=== PATIENT | female | born 1990 | race Caucasian/White ===

== ENCOUNTER 2017-02-20 07:43 | Emergency (ER) | payer SELFPAY ==
[2017-02-20] MEDS ORDERED: NORMAL SALINE 1000 ML 1,000 ML IV ONE ×2 (08:07→08:23)
[2017-02-20] MEDS ORDERED: ONDANSETRON 4 MG TAB.RAPDIS PO ONE (08:07)
[2017-02-20 08:26] LABS: ABSOLUTE EOSINOPHILS # (AUTO) 0.3 10^3/uL (0.0-0.6); ABSOLUTE LYMPHOCYTES (AUTO) 1.2 10^3/uL (0.5-4.7); ABSOLUTE MONOCYTES (AUTO) 0.5 10^3/uL (0.1-1.4); ABSOLUTE NEUT (AUTO) 2.5 10^3/uL (1.7-8.2); BASOPHILS % (AUTO) 0.7 % (0-2); HEMATOCRIT 43.5 % (36.0-47.0); HEMOGLOBIN 14.6 g/dL (12.0-15.5); HGB HCT DIFFERENCE 0.3; LYMPHOCYTES % (AUTO) 26.8 % (13-45); MEAN CORPUSCULAR HEMOGLOBIN 31.2 pg (27.0-33.4); MEAN CORPUSCULAR HGB CONC 33.5 g/dL (32.0-36.0); MEAN CORPUSCULAR VOLUME 93 fl (80-97); MONOCYTES % (AUTO) 12.1 % (3-13); RED BLOOD COUNT 4.67 10^6/uL (3.72-5.28); RED CELL DISTRIBUTION WIDTH 12.9 % (11.5-14.0); SEGMENTED NEUTROPHILS % (AUTO) 54.4 % (42-78); WHITE BLOOD COUNT 4.5 10^3/uL (4.0-10.5)
[2017-02-20 08:49] LABS: ALANINE AMINOTRANSFERASE 46 U/L (9-52); ALBUMIN 4.4 g/dL (3.5-5.0); ALKALINE PHOSPHATASE 67 U/L (38-126); ANION GAP 10 (5-19); ASPARTATE AMINO TRANSFERASE 26 U/L (14-36); BILIRUBIN,DIRECT 0.4 mg/dL (0.0-0.4); BILIRUBIN,TOTAL 0.9 mg/dL (0.2-1.3); BLOOD UREA NITROGEN 18 mg/dL (7-20); CALCIUM 9.4 mg/dL (8.4-10.2); CARBON DIOXIDE 27 mmol/L (22-30); CHLORIDE 103 mmol/L (98-107); CREATININE RESULT 0.71 mg/dL (0.52-1.25); GLUCOSE 141 mg/dL (75-110); LIPASE 43.5 U/L (23-300); POTASSIUM 3.9 mmol/L (3.6-5.0); TOTAL PROTEIN 7.4 g/dL (6.3-8.2)
[2017-02-20 08:51] LABS: APPEARANCE,URINE CLOUDY; BILIRUBIN,URINE NEGATIVE (NEGATIVE); GLUCOSE, URINE NEGATIVE (NEGATIVE); KETONES,URINE NEGATIVE (NEGATIVE); LEUKOCYTE ESTERASE,URINE NEGATIVE (NEGATIVE); NITRITE,URINE NEGATIVE (NEGATIVE); PROTEIN,URINE 30 mg/dL (NEGATIVE); URINE SPECIFIC GRAVITY 1.034; UROBILINOGEN,URINE NEGATIVE mg/dL (<2.0)
--- NOTE | 2017-02-20 09:51 | ER Document Report ---
ED GI/ - General Chief Complaint: Nausea/Vomiting/Diarrhea Stated Complaint: ABDOMINAL PAIN/VOMITING Time Seen by Provider: 02/20/17 08:06 Mode of Arrival: Ambulatory Information source: Patient Notes: 26-year-old female with nausea vomiting and diarrhea since Monday. She feels dehydrated and vomited at work so they sent her home. No fever or chills. Generalized mild abdominal pain and no focal tenderness at this time. No history of Crohn's, colitis, diverticulitis. Denies . TRAVEL OUTSIDE OF THE [place] IN LAST 30 DAYS: No - Related Data Allergies/Adverse Reactions: No Known Allergies Allergy (Unverified 02/20/17 07:48) Past Medical History - General Information source: Patient - Social History Smoking Status: Current Every Day Smoker Chew tobacco use (# tins/day): No Frequency of alcohol use: Occasional Drug Abuse: None Lives with: Family Family History: Reviewed & Not Pertinent Patient has suicidal ideation: No Patient has homicidal ideation: No - Medical History Medical History: Negative Renal/ Medical History: Denies: Hx Peritoneal Dialysis Surgical Hx: Negative Review of Systems - Review of Systems Constitutional: No symptoms reported EENT: No symptoms reported Cardiovascular: No symptoms reported Respiratory: No symptoms reported Gastrointestinal: See HPI Genitourinary: No symptoms reported Female Genitourinary: No symptoms reported Musculoskeletal: No symptoms reported Skin: No symptoms reported Hematologic/Lymphatic: No symptoms reported Neurological/Psychological: No symptoms reported Physical Exam - Vital signs Vitals: Temp Pulse Resp BP Pulse Ox 97.7 F 97 16 137/77 H 97 02/20/17 07:48 02/20/17 07:48 02/20/17 07:48 02/20/17 07:48 02/20/17 07:48 Interpretation: Normal - General General appearance: Appears well, Alert In distress: None - HEENT Head: Normocephalic, Atraumatic Eyes: Normal Pupils: PERRL Mucous membranes: Dry Neck: Supple. No: Lymphadenopathy - Respiratory Respiratory status: No respiratory distress Chest status: Nontender Breath sounds: Normal Chest palpation: Normal - Cardiovascular Rhythm: Regular Heart sounds: Normal auscultation Murmur: No - Abdominal Inspection: Normal Distension: No distension Bowel sounds: Normal Tenderness: Nontender. No: Tender Organomegaly: No organomegaly - Back Back: Normal, Nontender. No: CVA tenderness - Extremities General upper extremity: Normal inspection, Nontender, Normal color, Normal ROM , Normal temperature General lower extremity: Normal inspection, Nontender, Normal color, Normal ROM , Normal temperature, Normal weight bearing. No: Humberto's sign - Neurological Neuro grossly intact: Yes Cognition: Normal Orientation: AAOx4 Gareth Coma Scale Eye Opening: Spontaneous Gareth Coma Scale Verbal: Oriented Gareth Coma Scale Motor: Obeys Commands [place] Coma Scale Total: 15 Speech: Normal Motor strength normal: LUE, RUE, LLE, RLE Sensory: Normal - Psychological Associated symptoms: Normal affect, Normal mood - Skin Skin Temperature: Warm Skin Moisture: Dry Skin Color: Normal Skin irregularity: negative: Rash Course - Re-evaluation Re-evalutation: 02/20/17 19:01 Late entry: Patient felt much better after 2 L of fluid and she was able to drink fluids and eat crackers. sHe wants to return to work on Monday. - Vital Signs Vital signs: Temp Pulse Resp BP Pulse Ox 97.4 F 82 18 122/82 98 02/20/17 10:55 02/20/17 10:55 02/20/17 10:55 02/20/17 10:55 02/20/17 10:55 - Laboratory Result Diagrams: 02/20/17 07:50 02/20/17 07:50 Laboratory results interpreted by me: 02/20/17 02/20/17 07:50 07:50 Glucose 141 H Urine Protein 30 H Discharge - Discharge Clinical Impression: vomiting and diarrhea Condition: Good Disposition: HOME, SELF-CARE Instructions: Antinausea Medication ([facility]), Intravenous (IV) Fluids ([facility]), Vomiting ([facility]), Diarrhea, Nonspecific ([facility]) Additional Instructions: Continue to hydrate and advance her diet as tolerated Return to the emergency room if worse Please complete the patient satisfaction survey if you get one, and return it.. If you do not receive a survey, then you can go to the [facility] website, [email or web address] and place your comments about your very good care. Thank you very much. It was a pleasure being your medical provider today. Forms: Return to Work
[2017-02-20 11:01] VITALS: BP 122/82
== END 2017-02-20 11:01 | disposition home or self-care (01) ==
LOC: ER 07:43
DX: R11.2 Nausea with vomiting, unspecified (principal); R10.9 Unspecified abdominal pain; R19.7 Diarrhea, unspecified; F17.200 Nicotine dependence, unspecified, uncomplicated
CPT/HCPCS: 99284; 36415; 87086; 83690; 84703; 85025; 80053; 81001; S0119; J7030

== ENCOUNTER 2017-04-12 12:09 | Emergency (ER) | payer SELFPAY ==
--- NOTE | 2017-04-12 13:41 | ER Document Report ---
HPI - HPI Patient complains to provider of: facial swelling Pain Level: 5 Context: 26 yo female c/o left facial swelling since last night. denies new contacts or foods, no dental pain or gum swelling. no facial pain but cheek feels numb. denies tongue swelling. no difficulty swallowing, talking or breathing Associated Symptoms: None Exacerbated by: Denies Relieved by: Denies Similar symptoms previously: No Recently seen / treated by doctor: No - ROS Systems Reviewed and Negative: Yes All other systems reviewed and negative - DERM Skin Color: Normal Past Medical History - General Information source: Patient - Social History Smoking Status: Never Smoker Frequency of alcohol use: None Drug Abuse: None Lives with: Family Family History: Reviewed & Not Pertinent Patient has suicidal ideation: No Patient has homicidal ideation: No - Medical History Medical History: Negative Renal/ Medical History: Denies: Hx Peritoneal Dialysis Vertical Provider Document - CONSTITUTIONAL Agree With Documented VS: Yes Exam Limitations: No Limitations - INFECTION CONTROL TRAVEL OUTSIDE OF THE [place] IN LAST 30 DAYS: No - HEENT HEENT: Atraumatic, PERRLA Notes: + soft tissue swelling to left malar face. no angioedema, no gingival edema or pain - NECK Neck: Normal Inspection, Supple - RESPIRATORY O2 Sat by Pulse Oximetry: 97 - CARDIOVASCULAR Cardiovascular: Regular Rate, Regular Rhythm - MUSCULOSKELETAL/EXTREMETIES Musculoskeletal/Extremeties: MAEW, FROM, Non-Tender - NEURO Level of Consciousness: Awake, Alert, Appropriate - DERM Integumentary: Warm, Dry, No Rash Course - Re-evaluation Re-evalutation: 04/12/17 13:50 swelling looks more consistant with allergic reaction than infectious cause. will treat with steroid, antihistamines. pt instructed to return to ER for any worsening. agreeable with plan and stable for discharge - Vital Signs Vital signs: Temp Pulse Resp BP Pulse Ox 98.5 F 73 14 129/68 H 97 04/12/17 12:20 04/12/17 12:20 04/12/17 12:20 04/12/17 12:20 04/12/17 12:20 Discharge - Discharge Clinical Impression: Facial swelling Condition: Stable Disposition: HOME, SELF-CARE Instructions: Acute Allergic Reaction ([facility]), Steroid Medication, OTC Antihistamines ([facility]), Use of Diphenhydramine Additional Instructions: I am treating your symptoms for an allergic reaction please take medications as prescribed take OTC Benadryl 50mg every 6h for 24h after symptoms resolve take OTC Pepcid twice a day for 24h after symptoms resolve return to ER for any worsening Prescriptions: Prednisone [Deltasone 20 mg Tablet] 3 tab PO DAILY 5 Days Forms: Return to Work
[2017-04-12] MEDS ORDERED: PREDNISONE 20 MG TABLET PO ONE (13:44)
[2017-04-12] MEDS ORDERED: DIPHENHYDRAMINE HCL 50 MG CAPSULE PO ONE (13:44)
[2017-04-12] MEDS ORDERED: FAMOTIDINE 20 MG TABLET PO ONE (13:44)
[2017-04-12 14:15] VITALS: BP 119/68
== END 2017-04-12 14:13 | disposition home or self-care (01) ==
LOC: ER 12:09
DX: R22.0 Localized swelling, mass and lump, head (principal)
CPT/HCPCS: 99283; J7512

== ENCOUNTER 2018-02-11 16:50 | Inpatient (IN) | payer SELFPAY ==
[2018-02-11] MEDS ORDERED: AMPICILLIN SOD/SULBACTAM 3 GM VIAL IV ONE (17:19)
[2018-02-11] MEDS ORDERED: KETOROLAC TROMETHAMINE INJ/PF 30 MG/1 ML SDV IV ONE (17:19)
--- NOTE | 2018-02-11 17:20 | ER Document Report ---
ED Medical Screen (RME) - General Chief Complaint: Cat Bite Stated Complaint: CAT BITE/LEFT ARM PAIN, SWELLING Time Seen by Provider: 02/11/18 17:15 Notes: 27-year-old female patient was holding her friends Yesterday afternoon when her dog saw the cat and tried to get the cat. The cat freaked out and bit the patient on the left dorsal distal forearm several times. Today the entire area is red and swollen and quite painful. I have greeted and performed a rapid initial assessment of this patient. A comprehensive ED assessment and evaluation of the patient, analysis of test results and completion of the medical decision making process will be conducted by additional ED providers. TRAVEL OUTSIDE OF THE [place] IN LAST 30 DAYS: No - Related Data Allergies/Adverse Reactions: No Known Allergies Allergy (Verified 02/11/18 16:55) Past Medical History Renal/ Medical History: Denies: Hx Peritoneal Dialysis Physical Exam - Vital signs Vitals: Temp Pulse Resp BP Pulse Ox 98.2 F 94 20 122/67 100 02/11/18 17:01 02/11/18 17:01 02/11/18 17:01 02/11/18 17:01 02/11/18 17:01 Course - Vital Signs Vital signs: Temp Pulse Resp BP Pulse Ox 98.2 F 94 20 122/67 100 02/11/18 17:01 02/11/18 17:01 02/11/18 17:01 02/11/18 17:01 02/11/18 17:01
[2018-02-11 18:13] LABS: ABSOLUTE BASOPHILS # (AUTO) 0.1 10^3/uL (0.0-0.2); ABSOLUTE EOSINOPHILS # (AUTO) 0.2 10^3/uL (0.0-0.6); ABSOLUTE LYMPHOCYTES (AUTO) 2.3 10^3/uL (0.5-4.7); ABSOLUTE MONOCYTES (AUTO) 0.8 10^3/uL (0.1-1.4); ABSOLUTE NEUT (AUTO) 10.2 10^3/uL (1.7-8.2); BASOPHILS % (AUTO) 0.4 % (0-2); EOSINOPHILS % (AUTO) 1.2 % (0-6); HEMATOCRIT 42.3 % (36.0-47.0); HEMOGLOBIN 14.1 g/dL (12.0-15.5); LYMPHOCYTES % (AUTO) 16.8 % (13-45); MEAN CORPUSCULAR HEMOGLOBIN 30.8 pg (27.0-33.4); MEAN CORPUSCULAR HGB CONC 33.4 g/dL (32.0-36.0); MEAN CORPUSCULAR VOLUME 92 fl (80-97); PLATELET COUNT 217 10^3/uL (150-450); RED BLOOD COUNT 4.59 10^6/uL (3.72-5.28); RED CELL DISTRIBUTION WIDTH 13.1 % (11.5-14.0); SEGMENTED NEUTROPHILS % (AUTO) 75.6 % (42-78); TOTAL CELLS COUNTED % (AUTO) 100 %; WHITE BLOOD COUNT 13.5 10^3/uL (4.0-10.5)
[2018-02-11 18:24] LABS: ALANINE AMINOTRANSFERASE 38 U/L (9-52); ALBUMIN 4.6 g/dL (3.5-5.0); ALKALINE PHOSPHATASE 66 U/L (38-126); ANION GAP 15 (5-19); ASPARTATE AMINO TRANSFERASE 21 U/L (14-36); BILIRUBIN,DIRECT 0.3 mg/dL (0.0-0.4); BILIRUBIN,TOTAL 0.7 mg/dL (0.2-1.3); BLOOD UREA NITROGEN 11 mg/dL (7-20); CALCIUM 9.8 mg/dL (8.4-10.2); CARBON DIOXIDE 27 mmol/L (22-30); CHLORIDE 104 mmol/L (98-107); GLUCOSE 115 mg/dL (75-110); POTASSIUM 3.4 mmol/L (3.6-5.0); SODIUM 146.4 mmol/L (137-145); TOTAL PROTEIN 7.8 g/dL (6.3-8.2)
[2018-02-11] MEDS ORDERED: ONDANSETRON HCL INJ/PF 4 MG/2 ML SDV IV ONE (18:34)
[2018-02-11] MEDS ORDERED: DIPH/PERTUSS(ACELL)/TETANUS VAC/PF 0.5 ML SYR (>=10YO) IM ONE (18:34)
[2018-02-11] MEDS ORDERED: MORPHINE SULFATE 10 MG/ML INJ IV PRN (18:34)
--- NOTE | 2018-02-11 18:36 | ER Document Report ---
ED General - General Chief Complaint: Cat Bite Stated Complaint: CAT BITE/LEFT ARM PAIN, SWELLING Time Seen by Provider: 02/11/18 17:15 Notes: Patient is a 27-year-old female without past medical history who presents with 20-24 hours of progressively worsening erythema, pain and swelling of her left dorsal forearm. The patient reports that she was bitten 3-4 times by a friend' s cat yesterday afternoon when the cat saw her dog. She states that she has since had a progressively worsening throbbing, aching, severe pain to the affected area and that she has noted a rapidly spreading erythema from the areas of the bites down to the dorsum of her hand and spreading towards her elbow. She states any attempt at moving the arm worsens the pain. She has tried [id number] pain medications with minimal to no relief of the pain. she has not had any associated fever although does report cold chills. She has no history of similar symptoms in the past. She has not seen her primary care doctor regarding today's concerns. TRAVEL OUTSIDE OF THE [place] IN LAST 30 DAYS: No - Related Data Allergies/Adverse Reactions: No Known Allergies Allergy (Verified 02/11/18 16:55) Past Medical History - General Information source: Patient - Social History Smoking Status: Current Every Day Smoker Frequency of alcohol use: Rare Drug Abuse: None Lives with: Family Family History: Reviewed & Not Pertinent Patient has suicidal ideation: No Patient has homicidal ideation: No Renal/ Medical History: Denies: Hx Peritoneal Dialysis Review of Systems - Review of Systems Notes: Constitutional: Negative for fever. HENT: Negative for sore throat. Eyes: Negative for visual changes. Cardiovascular: Negative for chest pain. Respiratory: Negative for shortness of breath. Gastrointestinal: Negative for abdominal pain, vomiting or diarrhea. Genitourinary: Negative for dysuria. Musculoskeletal: Positive for left forearm pain Skin: Positive for rash. Neurological: Negative for headaches, weakness or numbness. 10 point ROS negative except as marked above and in HPI. Physical Exam - Vital signs Vitals: Temp Pulse Resp BP Pulse Ox 98.2 F 94 20 122/67 100 02/11/18 17:01 02/11/18 17:01 02/11/18 17:01 02/11/18 17:01 02/11/18 17:01 Notes: PHYSICAL EXAMINATION: GENERAL: Appears moderately uncomfortable but in no acute distress HEAD: Atraumatic, normocephalic. EYES: Pupils equal round and reactive to light, extraocular movements intact, sclera anicteric, conjunctiva are normal. ENT: nares patent, oropharynx clear without exudates. Moist mucous membranes. NECK: Normal range of motion, supple without lymphadenopathy LUNGS: Breath sounds clear to auscultation bilaterally and equal. No wheezes rales or rhonchi. HEART: Regular rate and rhythm without murmurs ABDOMEN: Soft, nontender, normoactive bowel sounds. No guarding, no rebound. No masses appreciated. EXTREMITIES: Normal range of motion, no pitting or edema. No cyanosis. Full flexion extension at the DIP, MCP and PIP of all digits of the left hand although obvious discomfort with this range of motion. No pain along palpation of the flexor sheath. NEUROLOGICAL: No focal neurological deficits. Moves all extremities spontaneously and on command. PSYCH: Normal mood, normal affect. SKIN: Warm, Dry, normal turgor, there are 4-5 puncture wounds that are scabbed over on the left midforearm with extensive surrounding induration and erythema without any areas of fluctuance. The erythema extends over the entirety the dorsum of the hand approaches approximately two thirds of the dorsal area of the forearm. Course - Re-evaluation Re-evalutation: 02/11/18 18:34 Patient presents after a cat bit her left dorsal forearm 3-4 times yesterday now with an extensive cellulitis to approximately two thirds of the surface area of the dorsal aspect of the left forearm also extending onto the dorsum of the hand. No evidence of flexor tenosynovitis on examination although the degree of cellulitis progression in less than 24 hours with associated extensive edema is extremely worrisome for rapidly progressing infection. Patient also has a marked amount of pain with this infection. Her tetanus has been updated. The cat is a known cat and is up-to-date on all immunizations including rabies vaccination. Given the rapidity with which the cellulitis has spread and the source of the infection, I have discussed the patient hospitalization and she has agreed. A dose of 3 mg of IV Unasyn has been administered. Pain control with morphine and Toradol as needed. Will discuss with the hospitalist for admission. - Vital Signs Vital signs: Temp Pulse Resp BP Pulse Ox 98.2 F 94 20 122/67 100 02/11/18 17:01 02/11/18 17:01 02/11/18 17:01 02/11/18 17:01 02/11/18 17:01 - Laboratory Result Diagrams: 02/11/18 17:48 02/11/18 17:48 Laboratory results interpreted by me: 02/11/18 02/11/18 17:48 17:48 WBC 13.5 H Absolute Neutrophils 10.2 H Sodium 146.4 H Potassium 3.4 L Glucose 115 H Discharge - Discharge Clinical Impression: Cellulitis of forearm, left Cat bite of left forearm with infection Qualifiers: Encounter type: initial encounter Qualified Code(s): S51.852A - Open bite of left forearm, initial encounter; L08.9 - Local infection of the skin and subcutaneous tissue, unspecified; L08.9 - Local infection of the skin and subcutaneous tissue, unspecified; W55.01XA - Bitten by cat, initial encounter; W55.01XA - Bitten by cat, initial encounter Condition: Fair Disposition: ADMITTED INPATIENT Admitting Provider: Hospitalist Unit Admitted: Medical Floor
[2018-02-11] MEDS ORDERED: PROMETHAZINE HCL 25 MG TABLET PO PRN (19:57)
--- NOTE | 2018-02-11 20:58 | PDOC H&P ---
History of Present Illness Admission Date/PCP: 02/11/18 19:59 History of Present Illness: ASIF TIRADO is a 27 year old female patient who does not have significant medical history presented with 1 day history of swelling pain and tenderness of her left following bitten by a cat. Patient denies any other constitutional symptoms. No nausea, vomiting, abdominal pain, diarrhea or urinary complaints. No headache, dizziness or blurry vision. Her initial blood work shows mild leukocytosis. Patient is given prophylaxis for tetanus at the ER. Past Medical History Medical History: None Past Surgical History Past Surgical History: Reports: None Social History Lives with: Family Smoking Status: Current Every Day Smoker - Advance Directive Resuscitation Status: Full Code Family History Family History: Reviewed & Not Pertinent Parental Family History Reviewed: Yes Children Family History Reviewed: Yes Sibling(s) Family History Reviewed.: Yes Medication/Allergy Home Medications: Prednisone [Deltasone 20 mg Tablet] 3 tab PO DAILY 5 Days tablet 04/12/17 Allergies/Adverse Reactions: No Known Allergies Allergy (Verified 02/11/18 16:55) Review of Systems Constitutional: PRESENT: as per HPI Eyes: PRESENT: as per HPI Ears: PRESENT: as per HPI Cardiovascular: PRESENT: as per HPI Gastrointestinal: PRESENT: as per HPI Neurological: PRESENT: as per HPI Physical Exam Vital Signs: Temp Pulse Resp BP Pulse Ox 98.5 F 78 20 123/68 100 02/11/18 20:22 02/11/18 20:22 02/11/18 17:01 02/11/18 20:22 02/11/18 20:22 General appearance: PRESENT: no acute distress Head exam: PRESENT: atraumatic, normocephalic Respiratory exam: PRESENT: clear to auscultation jeremy. ABSENT: rales, rhonchi, wheezes Cardiovascular exam: PRESENT: RRR. ABSENT: diastolic murmur, rubs, systolic murmur GI/Abdominal exam: PRESENT: normal bowel sounds, soft. ABSENT: distended, guarding, mass, organolmegaly, rebound, tenderness Extremities exam: PRESENT: other - The pertinent finding is erythema, swelling, tenderness and bite sibley on her left forearm. Assessment & Plan - Diagnosis (1) Cat bite of left forearm with infection Qualifiers: Encounter type: initial encounter Qualified Code(s): S51.852A - Open bite of left forearm, initial encounter; L08.9 - Local infection of the skin and subcutaneous tissue, unspecified; L08.9 - Local infection of the skin and subcutaneous tissue, unspecified; W55.01XA - Bitten by cat, initial encounter; W55.01XA - Bitten by cat, initial encounter Is this a current diagnosis for this admission?: Yes Plan: Patient given tetanus antitoxin (2) Cellulitis of forearm, left Is this a current diagnosis for this admission?: Yes Plan: Patient has been started on Unasyn. - Time Time Spent: 30 to 50 Minutes - Inpatient Certification Medical Necessity: Need for IV Antibiotics
[2018-02-11] MEDS: FENTANYL CITRATE INJ/PF 100 MCG/2 ML AMPUL IV PRN (22:07)
[2018-02-11] MEDS ORDERED: AMPICILLIN SOD/SULBACTAM 3 GM VIAL ONE (23:49)
[2018-02-12] MEDS: AMPICILLIN SODIUM/SULBACTAM NA 3 GM in NORMAL SALINE 100 ML IV SCH ×5 (00:36→23:13)
[2018-02-12] MEDS: ACETAMINOPHEN 325 MG TABLET PO PRN ×2 (03:56→09:54)
[2018-02-12] MEDS ORDERED: AMPICILLIN SOD/SULBACTAM 3 GM VIAL ONE (04:12)
[2018-02-12] MEDS: LANSOPRAZOLE 30 MG TAB.RAP.DR PO SCH (06:28)
[2018-02-12] MEDS: FENTANYL CITRATE INJ/PF 100 MCG/2 ML AMPUL IV PRN (06:29)
[2018-02-12 06:38] LABS: ABSOLUTE BASOPHILS # (AUTO) 0.1 10^3/uL (0.0-0.2); ABSOLUTE EOSINOPHILS # (AUTO) 0.3 10^3/uL (0.0-0.6); ABSOLUTE LYMPHOCYTES (AUTO) 2.3 10^3/uL (0.5-4.7); ABSOLUTE MONOCYTES (AUTO) 0.9 10^3/uL (0.1-1.4); BASOPHILS % (AUTO) 0.8 % (0-2); EOSINOPHILS % (AUTO) 2.8 % (0-6); HEMATOCRIT 38.3 % (36.0-47.0); HEMOGLOBIN 12.9 g/dL (12.0-15.5); LYMPHOCYTES % (AUTO) 24.4 % (13-45); MEAN CORPUSCULAR HEMOGLOBIN 30.9 pg (27.0-33.4); MEAN CORPUSCULAR HGB CONC 33.7 g/dL (32.0-36.0); MEAN CORPUSCULAR VOLUME 91 fl (80-97); MONOCYTES % (AUTO) 9.1 % (3-13); PLATELET COUNT 188 10^3/uL (150-450); RED BLOOD COUNT 4.19 10^6/uL (3.72-5.28); SEGMENTED NEUTROPHILS % (AUTO) 62.9 % (42-78); TOTAL CELLS COUNTED % (AUTO) 100 %; WHITE BLOOD COUNT 9.6 10^3/uL (4.0-10.5)
[2018-02-12 07:05] LABS: ANION GAP 9 (5-19); BLOOD UREA NITROGEN 14 mg/dL (7-20); CARBON DIOXIDE 25 mmol/L (22-30); CHLORIDE 109 mmol/L (98-107); GLUCOSE 126 mg/dL (75-110); POTASSIUM 3.6 mmol/L (3.6-5.0); SODIUM 142.6 mmol/L (137-145)
[2018-02-12] MEDS: ENOXAPARIN SODIUM INJ 40 MG/0.4 ML DISP.SYRIN SUBCUT SCH (09:48)
--- NOTE | 2018-02-12 11:55 | PDOC PROGRESS REPORT ---
Subjective Progress Note for:: 02/12/18 Subjective:: Patient admitted with cellulitis of the left upper extremity after being bitten by a cat. She was started on Unasyn. Patient tells me that he does not really look much better today. She denies any nausea vomiting other pertinent symptoms. Reason For Visit: CELLULITIS, CAT SCRATCH Physical Exam Vital Signs: Temp Pulse Resp BP Pulse Ox 97.9 F 67 20 97/52 L 100 02/12/18 07:30 02/12/18 07:30 02/12/18 07:30 02/12/18 07:30 02/12/18 07:30 Intake & Output 02/11/18 02/12/18 02/13/18 06:59 06:59 06:59 Intake Total 520 Output Total 100 Balance 420 Weight 79.8 kg General appearance: PRESENT: no acute distress Head exam: PRESENT: atraumatic Eye exam: PRESENT: conjunctiva pink, EOMI, PERRLA. ABSENT: scleral icterus Ear exam: PRESENT: normal external ear exam Neck exam: ABSENT: carotid bruit, JVD, lymphadenopathy, thyromegaly Respiratory exam: PRESENT: clear to auscultation jeremy. ABSENT: rales, rhonchi, wheezes Cardiovascular exam: PRESENT: RRR. ABSENT: diastolic murmur, rubs, systolic murmur Pulses: PRESENT: normal dorsalis pedis pul GI/Abdominal exam: PRESENT: normal bowel sounds, soft. ABSENT: distended, guarding, mass, organolmegaly, rebound, tenderness Rectal exam: PRESENT: deferred Extremities exam: PRESENT: full ROM - slightly diminished L wrist, joint swelling - L wrist, tenderness Neurological exam: PRESENT: alert, awake, oriented to person, oriented to place , oriented to time, oriented to situation, CN II-XII grossly intact. ABSENT: motor sensory deficit Results Laboratory Results: 02/12/18 06:10 02/12/18 06:10 02/12/18 02/12/18 06:10 06:10 WBC 9.6 RBC 4.19 Hgb 12.9 Hct 38.3 MCV 91 MCH 30.9 MCHC 33.7 RDW 13.0 Plt Count 188 Seg Neutrophils % 62.9 Lymphocytes % 24.4 Monocytes % 9.1 Eosinophils % 2.8 Basophils % 0.8 Absolute Neutrophils 6.0 Absolute Lymphocytes 2.3 Absolute Monocytes 0.9 Absolute Eosinophils 0.3 Absolute Basophils 0.1 Sodium 142.6 Potassium 3.6 Chloride 109 H Carbon Dioxide 25 Anion Gap 9 BUN 14 Creatinine 0.63 Est GFR ( Amer) > 60 Est GFR (Non-Af Amer) > 60 Glucose 126 H Calcium 9.0 Assessment & Plan - Diagnosis (1) Cat bite of left forearm with infection Qualifiers: Encounter type: initial encounter Qualified Code(s): S51.852A - Open bite of left forearm, initial encounter; L08.9 - Local infection of the skin and subcutaneous tissue, unspecified; L08.9 - Local infection of the skin and subcutaneous tissue, unspecified; W55.01XA - Bitten by cat, initial encounter; W55.01XA - Bitten by cat, initial encounter Is this a current diagnosis for this admission?: Yes Plan: Will consult Orthopedics for further evaluation (2) Cellulitis of forearm, left Is this a current diagnosis for this admission?: Yes - Time Time Spent with patient: 15-24 minutes Medications reviewed and adjusted accordingly: Yes Anticipated discharge: Home Within: within 72 hours - Inpatient Certification Based on my medical assessment, after consideration of the patient's comorbidities, presenting symptoms, or acuity I expect that the services needed warrant INPATIENT care.: Yes Medical Necessity: Need for IV Antibiotics
[2018-02-12] MEDS: IBUPROFEN 800 MG TABLET PO PRN ×2 (13:02→21:27)
--- NOTE | 2018-02-12 15:54 | PDOC CONSULTATION ---
Consultation Consult reason:: left forearm cat bite History of Present Illness Admission Date/PCP: 02/11/18 19:59 History of Present Illness: ASIF TIRADO is a 27 year old female Patient sustained By injury left forearm 3 days ago. She is uncertain of the tetanus status. Patient was seen in the emergency department, admitted to the medical service for intravenous antibiotics and arm elevation. Patient states initially the arm is very tight she could not move her wrist but now has improved range of motion of the hand. She remains on intravenous antibiotics; she is [id number] Past Medical History Past Medical History: Chronic smoker Past Surgical History Past Surgical History: Reports: None Social History Lives with: Family Smoking Status: Current Every Day Smoker Frequency of Alcohol Use: Occasional Hx Recreational Drug Use: No Drugs: None Hx Prescription Drug Abuse: No - Advance Directive Resuscitation Status: Full Code Family History Family History: Reviewed & Not Pertinent Parental Family History Reviewed: Yes Children Family History Reviewed: Yes Sibling(s) Family History Reviewed.: Yes Medication/Allergy Home Medications: No Home Medications 02/12/18 Allergies/Adverse Reactions: No Known Allergies Allergy (Verified 02/11/18 16:55) Review of Systems Eyes: ABSENT: visual disturbances Ears: ABSENT: hearing changes Cardiovascular: ABSENT: chest pain, dyspnea on exertion, edema, orthropnea, palpitations Respiratory: ABSENT: cough, hemoptysis Gastrointestinal: ABSENT: abdominal pain, constipation, diarrhea, hematemesis, hematochezia, nausea, vomiting Musculoskeletal: PRESENT: as per HPI Physical Exam Vital Signs: Temp Pulse Resp BP Pulse Ox 97.9 F 68 20 103/52 L 98 02/12/18 11:10 02/12/18 11:10 02/12/18 11:10 02/12/18 11:10 02/12/18 11:10 Intake & Output 02/11/18 02/12/18 02/13/18 06:59 06:59 06:59 Intake Total 520 Output Total 100 Balance 420 Weight 79.8 kg General appearance: PRESENT: no acute distress Head exam: PRESENT: normocephalic Mouth exam: PRESENT: dry mucosa Neck exam: PRESENT: full ROM Respiratory exam: PRESENT: clear to auscultation jeremy Cardiovascular exam: PRESENT: RRR Pulses: PRESENT: normal radial pulses, normal femoral pulses GI/Abdominal exam: PRESENT: normal bowel sounds Rectal exam: PRESENT: deferred Extremities exam: PRESENT: other - Left upper extremity examined. For punctate , healing her wounds to the left forearm dorsal surface, no foul smell drainage ; minimal tenderness to the distal left forearm, extensor retinaculum and the left hand. Range of motion of the fingers and hand well-preserved. Patient has some pain on wrist extension. Skin exam: PRESENT: other - No cervical adenopathy Results Laboratory Results: 02/12/18 06:10 02/12/18 06:10 02/12/18 02/12/18 06:10 06:10 WBC 9.6 RBC 4.19 Hgb 12.9 Hct 38.3 MCV 91 MCH 30.9 MCHC 33.7 RDW 13.0 Plt Count 188 Seg Neutrophils % 62.9 Lymphocytes % 24.4 Monocytes % 9.1 Eosinophils % 2.8 Basophils % 0.8 Absolute Neutrophils 6.0 Absolute Lymphocytes 2.3 Absolute Monocytes 0.9 Absolute Eosinophils 0.3 Absolute Basophils 0.1 Sodium 142.6 Potassium 3.6 Chloride 109 H Carbon Dioxide 25 Anion Gap 9 BUN 14 Creatinine 0.63 Est GFR ( Amer) > 60 Est GFR (Non-Af Amer) > 60 Glucose 126 H Calcium 9.0 Assessment & Plan - Diagnosis (1) Cellulitis of forearm, left Is this a current diagnosis for this admission?: Yes Plan: Self-reported cat bite left forearm and right hand dominant female with primarily local contamination; clinically significant for infection. Clinically improved, range of motion the left hand and forearm nearly intact Indications: 1. Aggressive physical therapy; this was discussed with patient 2. Elevation left forearm while at rest 3. Can safely switch to p.o. antibiotics - Time Time Spent: 30 to 50 Minutes Smoking Cessation Education: 3 to 10 minutes Anticipated discharge: Home - Inpatient Certification Based on my medical assessment, after consideration of the patient's comorbidities, presenting symptoms, or acuity I expect that the services needed warrant INPATIENT care.: Yes I certify that my determination is in accordance with my understanding of Medicare's requirements for reasonable and necessary INPATIENT services [42 CFR 412.3e].: Yes Medical Necessity: Need for Pain Control
[2018-02-13 05:48] LABS: ABSOLUTE BASOPHILS # (AUTO) 0.1 10^3/uL (0.0-0.2); ABSOLUTE EOSINOPHILS # (AUTO) 0.4 10^3/uL (0.0-0.6); ABSOLUTE LYMPHOCYTES (AUTO) 2.2 10^3/uL (0.5-4.7); ABSOLUTE MONOCYTES (AUTO) 0.6 10^3/uL (0.1-1.4); ABSOLUTE NEUT (AUTO) 3.8 10^3/uL (1.7-8.2); BASOPHILS % (AUTO) 1.2 % (0-2); EOSINOPHILS % (AUTO) 5.2 % (0-6); HEMATOCRIT 39.9 % (36.0-47.0); HEMOGLOBIN 13.4 g/dL (12.0-15.5); LYMPHOCYTES % (AUTO) 31.4 % (13-45); MEAN CORPUSCULAR HEMOGLOBIN 30.6 pg (27.0-33.4); MEAN CORPUSCULAR HGB CONC 33.7 g/dL (32.0-36.0); MEAN CORPUSCULAR VOLUME 91 fl (80-97); MONOCYTES % (AUTO) 8.7 % (3-13); PLATELET COUNT 182 10^3/uL (150-450); RED BLOOD COUNT 4.38 10^6/uL (3.72-5.28); RED CELL DISTRIBUTION WIDTH 13.1 % (11.5-14.0); SEGMENTED NEUTROPHILS % (AUTO) 53.5 % (42-78); TOTAL CELLS COUNTED % (AUTO) 100 %; WHITE BLOOD COUNT 7.1 10^3/uL (4.0-10.5)
[2018-02-13 06:08] LABS: ANION GAP 10 (5-19); BLOOD UREA NITROGEN 8 mg/dL (7-20); CALCIUM 9.5 mg/dL (8.4-10.2); CARBON DIOXIDE 25 mmol/L (22-30); CHLORIDE 109 mmol/L (98-107); GLUCOSE 133 mg/dL (75-110); SODIUM 144.4 mmol/L (137-145)
[2018-02-13] MEDS: LANSOPRAZOLE 30 MG TAB.RAP.DR PO SCH (06:12)
[2018-02-13] MEDS: AMPICILLIN SODIUM/SULBACTAM NA 3 GM in NORMAL SALINE 100 ML IV SCH ×2 (06:13→11:14)
[2018-02-13 07:03] LABS: POTASSIUM 4.7 mmol/L (3.6-5.0)
[2018-02-13] MEDS: ENOXAPARIN SODIUM INJ 40 MG/0.4 ML DISP.SYRIN SUBCUT SCH (09:11)
--- NOTE | 2018-02-13 10:38 | PDOC DISCHARGE SUMMARY ---
General - Admit/Disc Date/PCP Admission Date/Primary Care Provider: 02/11/18 19:59 Discharge Date: 02/13/18 - Discharge Diagnosis (1) Cat bite of left forearm with infection Is this a current diagnosis for this admission?: Yes (2) Cellulitis of forearm, left Is this a current diagnosis for this admission?: Yes - Additional Information Resuscitation Status: Full Code Discharge Diet: Regular Discharge Activity: Activity As Tolerated, Other - Elevate Lrft hand Prescriptions: Ibuprofen [Motrin 800 mg Tablet] 800 mg PO Q8HP PRN #30 tablet PRN Reason: Amox Tr/Potassium Clavulanate [Augmentin 875-125 mg Tablet] 1 tab PO BID #14 tablet Home Medications: Amox Tr/Potassium Clavulanate [Augmentin 875-125 mg Tablet] 1 tab PO BID #14 tablet 02/13/18 Ibuprofen [Motrin 800 mg Tablet] 800 mg PO Q8HP PRN #30 tablet 02/13/18 History of Present Illness History of Present Illness: ASIF TIRADO is a 27 year old female admitted with swelling and pain LUE following a cat bite Physical Exam Vital Signs: Temp Pulse Resp BP Pulse Ox 97.7 F 59 L 16 92/47 L 100 02/13/18 03:47 02/13/18 03:47 02/13/18 03:47 02/13/18 03:47 02/13/18 03:47 Intake & Output 02/12/18 02/13/18 02/14/18 06:59 06:59 06:59 Intake Total 520 5140 Output Total 100 Balance 420 5140 Weight 79.8 kg 83.6 kg General appearance: PRESENT: no acute distress, well-developed, well-nourished Eye exam: PRESENT: conjunctiva pink, EOMI, PERRLA. ABSENT: scleral icterus Ear exam: PRESENT: normal external ear exam GI/Abdominal exam: PRESENT: normal bowel sounds, soft. ABSENT: distended, guarding, mass, organolmegaly, rebound, tenderness Rectal exam: PRESENT: deferred Extremities exam: PRESENT: full ROM, joint swelling - L wrist, other - L UE swelling but improved Neurological exam: PRESENT: alert, awake, oriented to person, oriented to place , oriented to time, oriented to situation, CN II-XII grossly intact. ABSENT: motor sensory deficit Results Laboratory Results: 02/13/18 05:23 02/13/18 05:23 02/13/18 02/13/18 05:23 05:23 WBC 7.1 RBC 4.38 Hgb 13.4 Hct 39.9 MCV 91 MCH 30.6 MCHC 33.7 RDW 13.1 Plt Count 182 Seg Neutrophils % 53.5 Lymphocytes % 31.4 Monocytes % 8.7 Eosinophils % 5.2 Basophils % 1.2 Absolute Neutrophils 3.8 Absolute Lymphocytes 2.2 Absolute Monocytes 0.6 Absolute Eosinophils 0.4 Absolute Basophils 0.1 Sodium 144.4 Potassium 4.7 D Chloride 109 H Carbon Dioxide 25 Anion Gap 10 BUN 8 Creatinine 0.62 Est GFR ( Amer) > 60 Est GFR (Non-Af Amer) > 60 Glucose 133 H Calcium 9.5 Qualifiers - * PATIENT BEING DISCHARGED WITH ANY OF THE FOLLOWING DIAGNOSIS: No Plan Time Spent: Less than 30 Minutes
[2018-02-13 11:00] VITALS: BP 98/46
--- NOTE | 2018-02-13 16:32 | PDOC DISCHARGE SUMMARY ---
General - Admit/Disc Date/PCP Admission Date/Primary Care Provider: 02/11/18 19:59 Discharge Date: 02/13/18 - Discharge Diagnosis (1) Cat bite of left forearm with infection Is this a current diagnosis for this admission?: Yes (2) Cellulitis of forearm, left Is this a current diagnosis for this admission?: Yes - Additional Information Resuscitation Status: Full Code Discharge Diet: Regular Discharge Activity: Activity As Tolerated, Other Prescriptions: Ibuprofen [Motrin 800 mg Tablet] 800 mg PO Q8HP PRN #30 tablet PRN Reason: Amox Tr/Potassium Clavulanate [Augmentin 875-125 mg Tablet] 1 tab PO BID #14 tablet Home Medications: Amox Tr/Potassium Clavulanate [Augmentin 875-125 mg Tablet] 1 tab PO BID #14 tablet 02/13/18 Ibuprofen [Motrin 800 mg Tablet] 800 mg PO Q8HP PRN #30 tablet 02/13/18 History of Present Illness History of Present Illness: ASIF TIRADO is a 27 year old female who does not have significant medical history presented with 1 day history of swelling pain and tenderness of her left following bitten by a cat. Patient denies any other constitutional symptoms. No nausea, vomiting, abdominal pain, diarrhea or urinary complaints. No headache, dizziness or blurry vision. Her initial blood work shows mild leukocytosis. Patient is given prophylaxis for tetanus at the ER. Hospital Course Hospital Course: 27-year-old female was admitted with a cat bite of left upper extremity. She was found to have cellulitis and was treated with intravenous Unasyn in hospital. She was subsequently seen by general surgery with no was no need for any intervention. Patient symptoms improved with improvement of the swelling and with hemodynamic stability. With no further interventions been planned patient is been discharged home for outpatient follow-up. Physical Exam Vital Signs: Temp Pulse Resp BP Pulse Ox 97.7 F 59 L 16 98/46 L 100 02/13/18 10:57 02/13/18 10:57 02/13/18 10:57 02/13/18 10:57 02/13/18 10:57 Intake & Output 02/12/18 02/13/18 02/14/18 06:59 06:59 06:59 Intake Total 520 5140 458 Output Total 100 Balance 420 5140 458 Weight 79.8 kg 83.6 kg General appearance: PRESENT: no acute distress Head exam: PRESENT: atraumatic Ear exam: PRESENT: normal external ear exam Neck exam: ABSENT: carotid bruit, JVD, lymphadenopathy, thyromegaly Respiratory exam: PRESENT: clear to auscultation jeremy. ABSENT: rales, rhonchi, wheezes Cardiovascular exam: PRESENT: RRR. ABSENT: diastolic murmur, rubs, systolic murmur GI/Abdominal exam: PRESENT: normal bowel sounds, soft. ABSENT: distended, guarding, mass, organolmegaly, rebound, tenderness Musculoskeletal exam: PRESENT: ambulatory, full ROM, other - L upper extremity just distal to wrist with swelling and cat bite sibley but no drainage or erythema Neurological exam: PRESENT: alert, awake, oriented to person, oriented to place , oriented to time, oriented to situation, CN II-XII grossly intact. ABSENT: motor sensory deficit Psychiatric exam: PRESENT: appropriate affect, normal mood. ABSENT: homicidal ideation, suicidal ideation Results Laboratory Results: 02/13/18 05:23 02/13/18 05:23 02/13/18 02/13/18 05:23 05:23 WBC 7.1 RBC 4.38 Hgb 13.4 Hct 39.9 MCV 91 MCH 30.6 MCHC 33.7 RDW 13.1 Plt Count 182 Seg Neutrophils % 53.5 Lymphocytes % 31.4 Monocytes % 8.7 Eosinophils % 5.2 Basophils % 1.2 Absolute Neutrophils 3.8 Absolute Lymphocytes 2.2 Absolute Monocytes 0.6 Absolute Eosinophils 0.4 Absolute Basophils 0.1 Sodium 144.4 Potassium 4.7 D Chloride 109 H Carbon Dioxide 25 Anion Gap 10 BUN 8 Creatinine 0.62 Est GFR ( Amer) > 60 Est GFR (Non-Af Amer) > 60 Glucose 133 H Calcium 9.5 Qualifiers - * PATIENT BEING DISCHARGED WITH ANY OF THE FOLLOWING DIAGNOSIS: No Plan Time Spent: Less than 30 Minutes
== END 2018-02-13 14:19 | disposition home or self-care (01) | DRG 603 ==
LOC: ER 16:50 → EH 19:59 → 3S 21:46
PROVIDERS: ADMIT Internal Medicine; ATTEND Internal Medicine
DX: L03.114 Cellulitis of left upper limb (principal); S50.872A Other superficial bite of left forearm, initial encounter; R22.32 Localized swelling, mass and lump, left upper limb; F17.210 Nicotine dependence, cigarettes, uncomplicated; W55.01XA Bitten by cat, initial encounter; Y93.9 Activity, unspecified; Y92.89 Other specified places as the place of occurrence of the external cause
CPT/HCPCS: 36415; 80048; 80053; 84703; 85025; 87040; 90471; 90715; 96365; 96375; 99284; J0295; J1650; J1885; J2405; J3010